=== PATIENT | male | born 1940 | race Caucasian/White ===

== ENCOUNTER 2018-04-17 16:06 | Emergency (ER) | payer MEDICARE ==
[2018-04-17 16:23] VITALS: BP 133/89
--- NOTE | 2018-04-17 16:39 | Emergency Department Report ---
HPI - General Chief Complaint: Fall Time Seen by Provider: 04/17/18 16:32 - HPI HPI: 77-year-old male presents to the emergency department from home via EMS after he fell backwards in the bathroom while trying to wash his feet in the tub. He says that he fell between the tub and the toilet mostly landing on the right side of his body. He denies hitting his head or any loss of consciousness. Since that time he was having trouble getting up and says that he has been having some right hip pain. However he says that he does not have as much discomfort when he moves the right leg but does have a lot of pain in the right hip when he moves his left leg. He has a past history of bipolar disorder, schizophrenia and alcohol abuse. He usually ambulate without any assistance. He did not take anything and was not given anything for his symptoms prior to presentation. ED Past Medical Hx - Past Medical History Hx HIV: No - Surgical History Additional Surgical History: hernia repair, right hip repair - Social History Smoking Status: Current Every Day Smoker Substance Use Type: None - Medications Home Medications: Home Medications Medication Instructions Recorded Confirmed Last Taken Type No Known Home Medications [No 01/07/16 01/07/16 Unknown History Reported Home Medications] ED Review of Systems ROS: Stated complaint: (L) HIP PAIN Other details as noted in HPI Comment: All other systems reviewed and negative Constitutional: denies: chills, fever Eyes: denies: eye pain, eye discharge, vision change ENT: denies: ear pain, throat pain Respiratory: denies: cough, shortness of breath, wheezing Cardiovascular: denies: chest pain, palpitations Gastrointestinal: denies: abdominal pain, nausea, diarrhea Genitourinary: denies: urgency, dysuria Musculoskeletal: arthralgia, myalgia. denies: joint swelling Skin: denies: rash, lesions Neurological: denies: headache, numbness Physical Exam - Physical Exam Vital Signs: Vital Signs 04/17/18 04/17/18 16:21 16:25 Temperature 98.6 F Pulse Rate 85 Respiratory 18 18 Rate Blood Pressure 133/89 [Right] O2 Sat by Pulse 95 95 Oximetry Physical Exam: GENERAL: The patient is well-developed well-nourished. HENT: Normocephalic. Atraumatic. Patient has moist mucous membranes. EYES: Extraocular motions are intact. Pupils equal reactive to light bilaterally. NECK: Supple. Trachea is midline. CHEST/LUNGS: Clear to auscultation. There is no respiratory distress noted. HEART/CARDIOVASCULAR: Regular. There is no tachycardia. There is no murmur. ABDOMEN: Abdomen is soft, nontender. Patient has normal bowel sounds. There is no abdominal distention. SKIN: Skin is warm and dry. NEURO: The patient is awake, alert, and oriented. The patient is cooperative. The patient has no focal neurologic deficits. The patient has normal speech. MUSCULOSKELETAL: There is no tenderness to palpation to the extremities, the effected right hip, or with compression of the pelvis. However there is reproducible pain to the right hip with movement of the left leg. There is no limitation range of motion. BACK: No midline thoracic or lumbar spine palpation, step-off or deformity. ED Course Vital Signs 04/17/18 04/17/18 16:21 16:25 Temperature 98.6 F Pulse Rate 85 Respiratory 18 18 Rate Blood Pressure 133/89 [Right] O2 Sat by Pulse 95 95 Oximetry ED Medical Decision Making - Lab Data Result diagrams: 04/17/18 16:33 04/17/18 16:33 - Radiology Data Radiology results: image reviewed interpreted by me: X-ray of the bilateral hip and pelvis does not show any fracture, dislocation or any acute process. - Medical Decision Making This patient presents to the emergency department after he had a fall in his bathroom between the bathtub and the toilet. Since that time he has been having some right hip pain. However it is atypical as his right hip pain mostly occurs when he is moving his left leg. He denies hitting his head or any loss of consciousness. He denies any neck or back pains. Labs were unremarkable. An x-ray was done of the pelvis and bilateral hips which does not show any fracture, and his location or any other acute process. I discussed with the patient about the lab and imaging results. I suggested that we get a CT scan to further evaluate this right hip pain. The patient says that he does not want any further imaging at this time. He is seen resting comfortably. The patient was ambulatory throughout the emergency department and had no instability and did not complain of any significant discomfort. He has been given a referral for an orthopedist and instructed to follow-up with his primary care physician. He will return to the ER with any worsening of his symptoms or any acute distress. - Differential Diagnosis fracture, dislocation, muscle spasm, contusion Critical Care Time: No Critical care attestation.: If time is entered above; I have spent that time in minutes in the direct care of this critically ill patient, excluding procedure time. ED Disposition Clinical Impression: Right hip pain Fall Qualifiers: Encounter type: initial encounter Qualified Code(s): W19.XXXA - Unspecified fall, initial encounter Disposition: TO HOME OR SELFCARE Is pt being admited?: No Condition: Stable Instructions: Arthralgia (ED) Additional Instructions: Please follow up with a primary care physician in the next few days. I am giving you a referral for a local orthopedist, Dr. Romero, to follow up regarding your right hip pain. Return to the emergency Department with any worsening of your symptoms or any acute distress. Referrals: MERON ROMERO MD [Staff Physician] - 2-3 Days Time of Disposition: 18:51
[2018-04-17 16:54] LABS: Basophils % (Auto) 0.4 % (0.0-1.8); Eosinophils % (Auto) 0.5 % (0.0-4.3); Hematocrit 39.8 % (35.5-45.6); Hemoglobin 13.7 gm/dl (11.8-15.2); Lymphocytes % (Auto) 12.6 % (13.4-35.0); Mean Corpuscular HGB Conc 35 % (32-34); Mean Corpuscular Hemoglobin 31 pg (28-32); Mean Corpuscular Volume 90 fl (84-94); Monocytes # (Auto) 0.6 K/mm3 (0.0-0.8); Monocytes % (Auto) 7.7 % (0.0-7.3); Platelet Count 249 K/mm3 (140-440); Red Blood Count 4.43 M/mm3 (3.65-5.03); Red Cell Distribution Width 14.3 % (13.2-15.2)
[2018-04-17 17:09] LABS: BUN/Creatinine Ratio 14; Blood Urea Nitrogen 10 mg/dL (9-20); Calcium 8.9 mg/dL (8.4-10.2); Hemolysis Index 6
--- NOTE | 2018-04-17 17:27 | XRay Report ---
FINAL REPORT EXAM: XR HIPS BILAT 2V W/PELVIS HISTORY: fall, hip pain TECHNIQUE: Frontal views of the pelvis and hips and frog-lateral views both hips Comparison: CT abdomen and pelvis dated January 07, 2016 FINDINGS: There is partial visualization of retained hardware in the proximal right femur. There is no evidence of fracture, subluxation or hardware failure. There is degenerative change of the lower lumbar spine. There is atherosclerotic vascular calcification. IMPRESSION: 1. No plain film evidence of fracture, subluxation or hardware failure. If further imaging is required, CT may be helpful. 2. Degenerative change lower lumbar spine. 3. Atherosclerotic vascular calcification.
[2018-04-17 17:33] LABS: Bacteria,Urine 1+ /HPF (Negative); Bilirubin,Urine NEG (Negative); Blood,Urine SM (Negative); Color,Urine Yellow (Yellow); Mucus,Urine FEW /HPF; Protein,Urine <15 mg/dL mg/dL (Negative)
[2018-04-17 17:48] LABS: Amphetamine Screen,Urine PRESUMPTIVE NEGATIVE; Benzodiazepines Screen,Urine PRESUMPTIVE NEGATIVE; Cannabinoid Screen,Urine PRESUMPTIVE NEGATIVE; Cocaine Screen,Urine PRESUMPTIVE NEGATIVE; Methadone Screen,Urine PRESUMPTIVE NEGATIVE; Opiate Screen,Urine PRESUMPTIVE NEGATIVE
== END 2018-04-17 19:02 | disposition home or self-care (01) ==
LOC: ED 16:06
DX: M25.551 Pain in right hip (principal); F17.200 Nicotine dependence, unspecified, uncomplicated; W18.30XA Fall on same level, unspecified, initial encounter; Y93.89 Activity, other specified; Y99.8 Other external cause status; Y92.012 Bathroom of single-family (private) house as the place of occurrence of the external cause
CPT/HCPCS: 36415; 73521; 80048; 80307; 81001; 85025; 99284; G0480; 80320

== ENCOUNTER 2018-04-19 09:53 | Emergency (ER) | payer MEDICARE ==
[2018-04-19] MEDS ORDERED: MOTRIN PO ONE (10:43)
[2018-04-19] MEDS ORDERED: NORCO 5/325 PO ONE (10:43)
--- NOTE | 2018-04-19 10:47 | Emergency Department Report ---
ED General Adult HPI - General Chief complaint: Abdominal Pain Stated complaint: RIGHT SIDE PAIN Time Seen by Provider: 04/19/18 10:39 Source: patient Mode of arrival: Wheelchair Limitations: Other - History of Present Illness Initial comments: Patient is a 77-year-old male who has a past medical history of right hip repair who states he's had right kidney pain for approximately 2 weeks status post a fall. Patient states these was diagnosed with an infection in the kidney at another hospital but does not remember taken antibiotics. Patient states he 2 weeks ago fell between the toilet and toe on his right side and has pain. Patient states this is a kidney pain but is pointing to the area just above the right iliac crest. Patient was here 2 days ago and had x-rays done of the right hip which were within normal limits with the patient states he is continuing to have pain and has returned. Patient denies any hematuria dysuria fevers chills nausea vomiting diarrhea at this time. Severity scale (0 -10): 6 Quality: aching Consistency: constant - Related Data Previous Rx's Medication Instructions Recorded Last Taken Type Docusate Sodium [Colace] 100 mg PO BID #30 capsule 04/19/18 Unknown Rx HYDROcodone/APAP 5-325 [[place] 1 each PO Q6HR PRN #15 tablet 04/19/18 Unknown Rx 5/325] levoFLOXacin [Levaquin TAB] 500 mg PO QDAY #7 tablet 04/19/18 Unknown Rx Allergies Allergy/AdvReac Type Severity Reaction Status Date / Time No Known Allergies Allergy Unverified 01/07/16 11:31 ED Review of Systems ROS: Stated complaint: RIGHT SIDE PAIN Other details as noted in HPI Comment: All other systems reviewed and negative Respiratory: cough ED Past Medical Hx - Past Medical History Previous Medical History?: No Hx HIV: No Additional medical history: Poor historian - Surgical History Past Surgical History?: Yes Additional Surgical History: hernia repair, right hip repair - Social History Smoking Status: Current Every Day Smoker Substance Use Type: None - Medications Home Medications: Home Medications Medication Instructions Recorded Confirmed Last Taken Type Docusate Sodium [Colace] 100 mg PO BID #30 capsule 04/19/18 Unknown Rx HYDROcodone/APAP 5-325 [[place] 1 each PO Q6HR PRN #15 tablet 04/19/18 Unknown Rx 5/325] levoFLOXacin [Levaquin TAB] 500 mg PO QDAY #7 tablet 04/19/18 Unknown Rx ED Physical Exam - General Limitations: Other General appearance: alert, in no apparent distress - Head Head exam: Present: atraumatic, normocephalic - Eye Eye exam: Present: normal appearance - ENT ENT exam: Present: mucous membranes moist - Neck Neck exam: Present: normal inspection - Respiratory Respiratory exam: Present: normal lung sounds bilaterally. Absent: respiratory distress, wheezes, rales, rhonchi, chest wall tenderness - Cardiovascular Cardiovascular Exam: Present: regular rate, normal rhythm. Absent: systolic murmur, diastolic murmur, rubs, gallop - GI/Abdominal GI/Abdominal exam: Present: soft, normal bowel sounds. Absent: distended, tenderness, guarding, rebound - Rectal Rectal exam: Present: deferred - Extremities Exam Extremities exam: Present: normal inspection - Back Exam Back exam: Present: normal inspection, full ROM, CVA tenderness (R) - Neurological Exam Neurological exam: Present: alert, oriented X3 - Psychiatric Psychiatric exam: Present: normal affect, normal mood - Skin Skin exam: Present: warm, dry, intact, normal color. Absent: rash ED Course Vital Signs 04/19/18 04/19/18 10:05 11:55 Temperature 98.1 F Pulse Rate 85 Respiratory 20 20 Rate Blood Pressure 161/85 O2 Sat by Pulse 98 Oximetry ED Medical Decision Making - Lab Data Lab Results 04/19/18 Range/Units 12:05 Urine Color Yellow (Yellow) Urine Turbidity Slightly-cloudy (Clear) Urine pH 5.0 (5.0-7.0) Ur Specific [place] 1.009 (1.003-1.030) Urine Protein <15 mg/dl (Negative) mg/dL Urine Glucose (UA) Neg (Negative) mg/dL Urine Ketones Neg (Negative) mg/dL Urine Blood Sm (Negative) Urine Nitrite Pos (Negative) Urine Bilirubin Neg (Negative) Urine Urobilinogen < 2.0 (<2.0) mg/dL Ur Leukocyte Esterase Lg (Negative) Urine WBC (Auto) 44.0 H (0.0-6.0) /HPF Urine RBC (Auto) 6.0 (0.0-6.0) /HPF U Epithel Cells (Auto) < 1.0 (0-13.0) /HPF Urine Bacteria (Auto) 2+ (Negative) /HPF Hyaline Casts 1 /LPF Urine Mucus Few /HPF - Radiology Data Patient: MYNOR MUKHERJEE MR#: [id number] : 1940 Acct:[id number] Age/Sex: 77 / M ADM Date: 04/19/18 Loc: ED Attending Dr: Ordering Physician: MAXI CISSE MD Date of Service: 04/19/18 Procedure(s): XR ribs UNI w PA Chest 3+V RT Accession Number(s): [id number] cc: MAXI CISSE MD Fluoro Time In Minutes: CHEST WITH RIGHT RIB DETAIL FOUR VIEWS: 04/19/18 09:53:00 CLINICAL: Fall with injury to the right chest. No comparison. FINDINGS: No acute rib fracture or rib lesion. Old healed fractures of the right eighth, ninth and 10th ribs some bridging callus.A spiculated left upper lobe lung opacity measures approximately 2 cm. The lungs are otherwise clear. Pulmonary hyperinflation. No pneumothorax. Normal heart and pulmonary vasculature the lungs are clear. Aortic tortuosity and calcification. IMPRESSION: Old right rib fractures and no acute fracture identified. COPD and a suspicious left upper lobe lung opacity. Recommend CT chest to exclude left upper lobe tumor. Transcribed By: REF Dictated By: NATHAN SHIRLEY MD Electronically Authenticated By: NATHAN SHIRLEY MD Signed Date/Time: 04/19/18 1203 - Medical Decision Making Patient is a 77-year-old male who is presenting with right sided back pain. Patient was ruled out for hip fracture 2 days ago. X-rays of the chest and ribs were performed today which did show that he has old rib fractures but nothing acute. Patient's fall was approximately 3 weeks ago. Patient does have a masslike infiltrate in his lungs. Did have a long conversation with the patient regarding this. Patient did not want any additional studies regarding the mass. I urged the patient to follow with pulmonology as a outpatient. Patient again was most concerned about his "kidneys". Patient does have a urinary tract infection and started on Levaquin and [place] to be discharged home. Critical care attestation.: If time is entered above; I have spent that time in minutes in the direct care of this critically ill patient, excluding procedure time. ED Disposition Clinical Impression: Lung mass Acute cystitis Qualifiers: Hematuria presence: with hematuria Qualified Code(s): N30.01 - Acute cystitis with hematuria Disposition: TO HOME OR SELFCARE Is pt being admited?: No Does the pt Need Aspirin: No Condition: Stable Instructions: Urinary Tract Infection in Men (ED) Time of Disposition: 13:29
--- NOTE | 2018-04-19 12:06 | XRay Report ---
CHEST WITH RIGHT RIB DETAIL FOUR VIEWS: 04/19/18 09:53:00 CLINICAL: Fall with injury to the right chest. No comparison. FINDINGS: No acute rib fracture or rib lesion. Old healed fractures of the right eighth, ninth and 10th ribs some bridging callus.A spiculated left upper lobe lung opacity measures approximately 2 cm. The lungs are otherwise clear. Pulmonary hyperinflation. No pneumothorax. Normal heart and pulmonary vasculature the lungs are clear. Aortic tortuosity and calcification. IMPRESSION: Old right rib fractures and no acute fracture identified. COPD and a suspicious left upper lobe lung opacity. Recommend CT chest to exclude left upper lobe tumor.
[2018-04-19 12:23] LABS: Bacteria,Urine 2+ /HPF (Negative); Bilirubin,Urine NEG (Negative); Blood,Urine SM (Negative); Color,Urine Yellow (Yellow); Hyaline Casts,Urine 1 /LPF; Mucus,Urine FEW /HPF; Protein,Urine <15 mg/dL mg/dL (Negative); Urobilinogen,Urine < 2.0 mg/dL (<2.0)
[2018-04-19 15:38] VITALS: BP 109/78
== END 2018-04-19 13:40 | disposition home or self-care (01) ==
LOC: ED 09:53
DX: N30.01 Acute cystitis with hematuria (principal); R91.8 Other nonspecific abnormal finding of lung field; F17.200 Nicotine dependence, unspecified, uncomplicated
CPT/HCPCS: 81001; 99284

== ENCOUNTER 2018-04-20 15:25 | Emergency (ER) | payer MEDICARE ==
[2018-04-20] MEDS ORDERED: LEVAQUIN PO ONE (21:17)
--- NOTE | 2018-04-20 23:32 | Emergency Department Report ---
ED Male HPI - General Chief complaint: Urogenital-Male Stated complaint: UIT Time Seen by Provider: 04/20/18 20:46 Source: patient Mode of arrival: Ambulatory Limitations: No Limitations - History of Present Illness Initial comments: 77-year-old male presents to Hospital signs of recent diagnosis of UTI and inability to afford prescribed medications. Patient was seen around 04/17 or fall and then seen again on 04/19 and diagnosed with UTI. Patient was discharged on Levaquin, [place], and Colace on April 19. Patient states that the prescription was $80 he does not have money. I told him I can't prescribe a more affordable antibiotic he states it doesn't matter he can't afford any of it. He states he lost his ID and therefore does not have access checking account and he can not pay his rent. I informed him that his ED visit is more expensive than a medication on the $4 list. He responds well I can't pay that there either. He also states he does not have any friends or family that can help or that he wants to help him. He does not have any symptoms and denies dysuria, fever, abdominal pain, nausea, vomiting, or generalized weakness. - Related Data Previous Rx's Medication Instructions Recorded Last Taken Type Docusate Sodium [Colace] 100 mg PO BID #30 capsule 04/19/18 Unknown Rx HYDROcodone/APAP 5-325 [[place] 1 each PO Q6HR PRN #15 tablet 04/19/18 Unknown Rx 5/325] levoFLOXacin [Levaquin TAB] 500 mg PO QDAY #7 tablet 04/19/18 Unknown Rx cephALEXin [Keflex] 500 mg PO Q12HR #14 cap 04/20/18 Unknown Rx Allergies Allergy/AdvReac Type Severity Reaction Status Date / Time No Known Allergies Allergy Unverified 01/07/16 11:31 ED Review of Systems ROS: Stated complaint: UIT Other details as noted in HPI Comment: All other systems reviewed and negative ED Past Medical Hx - Past Medical History Previous Medical History?: No Hx HIV: No Additional medical history: Poor historian - Surgical History Past Surgical History?: Yes Additional Surgical History: hernia repair, right hip repair - Social History Smoking Status: Current Every Day Smoker Substance Use Type: None - Medications Home Medications: Home Medications Medication Instructions Recorded Confirmed Last Taken Type Docusate Sodium [Colace] 100 mg PO BID #30 capsule 04/19/18 Unknown Rx HYDROcodone/APAP 5-325 [[place] 1 each PO Q6HR PRN #15 tablet 04/19/18 Unknown Rx 5/325] levoFLOXacin [Levaquin TAB] 500 mg PO QDAY #7 tablet 04/19/18 Unknown Rx cephALEXin [Keflex] 500 mg PO Q12HR #14 cap 04/20/18 Unknown Rx ED Physical Exam - General Limitations: No Limitations - Other Other exam information: General: No limitations, patient is alert in no acute distress Head exam: Atraumatic, normocephalic Eyes exam: Normal appearance, pupils equal reactive to light, extraocular movements intact ENT: Moist mucous membrane, normal oropharynx Neck exam: Normal inspection, full range of motion, no meningismus nontender Respiratory exam: Clear to auscultation bilateral, no wheezes, rales, crackles Cardiovascular: Normal rate and rhythm, normal heart sounds Abdomen: Soft, nondistended, and nontender, with normal bowel sounds, no rebound, or guarding Extremity: Full range of motion normal inspection no deformity Back: Normal Inspection, full range of motion, no tenderness Neurologic: Alert, oriented x3, cranial nerves intact, no motor or sensory deficit Psychiatric: normal affect, normal mood Skin: Warm, dry, intact ED Course Vital Signs 04/20/18 04/20/18 04/20/18 15:43 20:35 22:16 Temperature 98.8 F 98.1 F Pulse Rate 88 89 Respiratory 20 16 Rate Blood Pressure 146/92 154/100 Blood Pressure 129/92 [Left] O2 Sat by Pulse 98 96 97 Oximetry 04/20/18 04/20/18 04/21/18 22:46 23:46 00:16 Temperature Pulse Rate 76 73 Respiratory 22 21 Rate Blood Pressure 130/80 133/77 119/72 Blood Pressure [Left] O2 Sat by Pulse 95 95 95 Oximetry ED Medical Decision Making - Lab Data Lab Results 04/20/18 Range/Units 22:15 Urine Color Yellow (Yellow) Urine Turbidity Cloudy (Clear) Urine pH 5.0 (5.0-7.0) Ur Specific [place] 1.005 (1.003-1.030) Urine Protein <15 mg/dl (Negative) mg/dL Urine Glucose (UA) Neg (Negative) mg/dL Urine Ketones Neg (Negative) mg/dL Urine Blood Sm (Negative) Urine Nitrite Pos (Negative) Urine Bilirubin Neg (Negative) Urine Urobilinogen < 2.0 (<2.0) mg/dL Ur Leukocyte Esterase Sm (Negative) Urine WBC (Auto) 9.0 H (0.0-6.0) /HPF Urine RBC (Auto) 2.0 (0.0-6.0) /HPF Urine Bacteria (Auto) 2+ (Negative) /HPF Amorphous Crystals 1+ Hyaline Casts 1 /LPF Urine Mucus Few /HPF - Medical Decision Making Patient is asymptomatic in the ED Diagnoses of UTI but states can afford antibiotics By mouth Levaquin given in the ED UA urine culture ordered Patient will be discharged more affordable medications while cultures are pending client services account manager consult in the a.m. the patient repeatedly returning to the ER and having social issues - Differential Diagnosis UTI Critical Care Time: No Critical care attestation.: If time is entered above; I have spent that time in minutes in the direct care of this critically ill patient, excluding procedure time. ED Disposition Clinical Impression: UTI (urinary tract infection), Noncompliance with medication regimen Disposition: - TO HOME OR SELFCARE Is pt being admited?: No Does the pt Need Aspirin: No Condition: Stable Instructions: Urinary Tract Infection in Men (ED) Additional Instructions: Take the medication as prescribed. Follow up with your doctor. Return if symptoms worsen as indicated by your discharge instructions. Your antibiotic is less than $5 at [facility] using a good Rx card for a discount Prescriptions: cephALEXin [Keflex] 500 mg PO Q12HR #14 cap Referrals: PRIMARY MD JULIANO [Primary Care Provider] - 3-5 Days [facility] [Provider Group] - 3-5 Days Time of Disposition: 01:41
[2018-04-21 00:24] VITALS: BP 119/72
[2018-04-21 00:28] LABS: Amorphous Crystals,Urine 1+; Bacteria,Urine 2+ /HPF (Negative); Bilirubin,Urine NEG (Negative); Blood,Urine SM (Negative); Color,Urine Yellow (Yellow); Hyaline Casts,Urine 1 /LPF; Mucus,Urine FEW /HPF; Protein,Urine <15 mg/dL mg/dL (Negative); Urobilinogen,Urine < 2.0 mg/dL (<2.0)
== END 2018-04-21 02:05 | disposition home or self-care (01) ==
LOC: ED 15:25
DX: N39.0 Urinary tract infection, site not specified (principal); Z76.0 Encounter for issue of repeat prescription; F17.200 Nicotine dependence, unspecified, uncomplicated
CPT/HCPCS: 81001; 87076; 87086; 87186